=== PATIENT | male | born 1955 | race Caucasian/White ===

== ENCOUNTER 2018-05-14 04:38 | Emergency (ER) | payer OTHER ==
[~2018-05-14] VITALS: Ht 180.3 cm; Wt 80.3 kg
[2018-05-14 04:59] VITALS: Ht 180.3 cm; Wt 80.3 kg
[2018-05-14 07:02] VITALS: BP 130/70
== END 2018-05-14 07:02 | disposition home or self-care (01) ==
LOC: ED 04:38
DX: S01.412A Laceration without foreign body of left cheek and temporomandibular area, initial encounter (principal); S00.81XA Abrasion of other part of head, initial encounter; Z98.890 Other specified postprocedural states; X50.1XXA Overexertion from prolonged static or awkward postures, initial encounter; Y93.89 Activity, other specified; Y92.89 Other specified places as the place of occurrence of the external cause; Y99.8 Other external cause status
CPT/HCPCS: 90715; J2001